=== PATIENT | male | born 1995 | race Caucasian/White ===

== ENCOUNTER 2018-02-10 17:47 | Emergency (ER) | payer SELFPAY ==
--- NOTE | 2018-02-10 18:02 | PDOC ---
History of Present Illness - General Chief Complaint: Laceration Stated Complaint: CUT LEFT INDEX FINGER WITH KNIFE Time Seen by Provider: 02/10/18 17:49 History Source: Patient Exam Limitations: No Limitations - History of Present Illness Initial Comments: This is a 22 YOM with unremarkable PMH who p/w left index finger laceration sustained about 30 minutes [employer] to the ED today. He was cooking and was attempting to cut peppers with a cooking knife when he accidentally cut the fingertip. He did not attempt to wash the incision at home. His pain level is 2/ 10 and he denies any weakness, numbness, or tingling to the finger. He denies any additional injury sustained as a result of this incident. He and his significant other are visiting from [facility] and have been staying in [place] for the past 10 days. He is UTD on his Tetanus status with last vaccination in 2010. Past History - Past Medical History Allergies/Adverse Reactions: Allergies Allergy/AdvReac Type Severity Reaction Status Date / Time No Known Allergies Allergy Unverified 02/10/18 17:49 Home Medications: Ambulatory Orders NK [No Known Home Medication] 02/10/18 Review of Systems - Review of Systems Able to Perform ROS?: Yes Constitutional: No: Chills, Fever, Unexplained wgt Loss HEENTM: No: Nose Congestion, Throat Pain Respiratory: No: Cough, Shortness of Breath Cardiac (ROS): No: Chest Pain, Palpitations ABD/GI: No: Constipated, Diarrhea, Nausea, Vomiting : No: Burning, Dysuria Musculoskeletal: No: Back Pain, Neck Pain Integumentary: Yes: Other (laceration). No: Bruising, Rash Neurological: No: Headache, Numbness, Tingling, Weakness, Dizziness Endocrine: No: Unexplained Weight Gain, Unexplained Weight Loss *Physical Exam - Physical Exam General Appearance: Yes: Nourished, Appropriately Dressed, Other (well appearing young adult male who is Nepalese speaking with [place] accent, answering questions appropriately, accompanied by significant other). No: Apparent Distress HEENT: positive: EOMI, BRI, Normal ENT Inspection, Normal Voice, Hearing Grossly Normal. negative: Scleral Icterus (R), Scleral Icterus (L), Nasal Congestion Neck: positive: Trachea midline, Supple. negative: Tender, Rigid Respiratory/Chest: positive: Lungs Clear, Normal Breath Sounds. negative: Respiratory Distress, Crackles, Rhonchi, Stridor, Wheezing Cardiovascular: positive: Regular Rhythm, Regular Rate. negative: Edema, JVD, Murmur Gastrointestinal/Abdominal: positive: Normal Bowel Sounds, Flat, Soft. negative : Tender, Organomegaly, Pulsatile Mass, Guarding Musculoskeletal: positive: Normal Inspection. negative: Decreased Range of Motion, Vertebral Tenderness Extremity: positive: Normal Capillary Refill, Normal Inspection, Normal Range of Motion. negative: Tender, Cyanosis Integumentary: positive: Normal Color, Dry, Warm, Other (radial aspect of left index fingerpad with 2.7 cm superficial linear laceration which is oozing small amount of blood, wound appears clean, no nailbed involvement, no apparent arterial injury, no tendon injury, distally and proximally neurovascularly intact). 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 negative: Numbness, Sensory Deficit, Confused, Disoriented Procedures - Laceration/Wound Repair Left Distal Finger 2nd digit Wound Length: 2.6 to 5.0 cm Wound Explored: clean, no foreign body present Wound's Depth, Shape: superficial, linear Irrigated w/ Saline: Yes Betadine Prep: No Anesthesia: 1% Lidocaine Amount of Anesthetic (ccs): 3 (digital block and local) Suture Size/Type: 5:0, nylon Number of Sutures: 4 Layer Closure: No Sterile Dressing Applied: Yes Splint Applied: No Medical Decision Making - Medical Decision Making 02/10/18 17:49 Pt p/w laceration to left index finger sustained from a knife about 30 min [employer] to the ED. No e/o tendon, ligament, or bony injury. No obvious FB or debris. Last tDaP was 2010. Initial Vital Signs Temp Pulse Resp BP Pulse Ox 98.7 F 76 16 141/78 99 02/10/18 17:49 02/10/18 17:49 02/10/18 17:49 02/10/18 17:49 02/10/18 17:49 Exam: As noted in Physical Exam section. DDX IBNLT: Simple soft tissue laceration, tendon/ligament involvement, bony involvement, larger blood vessel injury, retained FB, wound contamination with risk for infection, etc. W/U ordered: None indicated TX ordered: None indicated XR: No FB, no fracture or other bony involvement. Laceration numbed, cleaned, repaired without issue as noted in Procedures section. Hemostasis achieved, good approximation, Bacitracin applied and wound dressed. DISCHARGE The Pts laceration has been repaired without issue. They do not require abx for this laceration. Workup is not concerning for emergency-level pathology at this time. The Pt is appropriate for discharge. They are comfortable with this plan and will return to ED or go to next Friday for suture removal. Specific return precautions are discussed and they will come back to the ER if necessary. *DC/Admit/Observation/Transfer Diagnosis at time of Disposition: Finger laceration Qualifiers: Encounter type: initial encounter Finger: index finger Damage to nail status: without damage Foreign body presence: without foreign body Laterality: left Qualified Code(s): S61.211A - Laceration without foreign body of left index finger without damage to nail, initial encounter - Discharge Dispostion Disposition: HOME Condition at time of disposition: Stable Decision to Admit order: No - Referrals Referrals: ON STAFF,NOT [Non Staff, Medical] - - Patient Instructions Printed Discharge Instructions: DI for Laceration Repair Additional Instructions: You were seen in the ER for a finger laceration. We did an exam, cleaned and repaired the laceration with 4 sutures, and made sure your tetanus vaccination was up to date (you had a vaccination in 2010). After our assessment, we do not believe you are having a medical emergency at this time, and we believe you are safe to go home. Please read the information in this packet on how to care for your laceration. Keep the dressing on your wound for 24 hours and keep it clean and dry. After 24 hours, you can take the dressing off and you can shower and get the wound wet, but do not scrub the wound and do not soak it in water. Do not swim, sit in a bath of water, or sit in a jacuzzi. Please follow up with a doctor in 7-10 days to have the sutures removed (this can be your regular primary doctor, or you can return to the ER). If you have any new or worsening symptoms, especially increasing pain and redness to the area or other signs of infection like fever, please come back to the ER at any time (24 hours a day). If you are having severe or life threatening symptoms, or symptoms that make it unsafe to drive or have someone drive you, please call 911. Print Language: SPANISH - Post Discharge Activity
[2018-02-10 18:05] VITALS: BP 141/78; PULSE 76; TEMP 98.7; BMI 25.4
[2018-02-10] MEDS ORDERED: DIPHTH,PERTUSS(ACELL),TET 0.5 ML DISP.SYRIN IM ONE (18:23)
--- NOTE | 2018-02-10 18:37 | PDOC ---
Attending Attestation - Resident Resident Name: Danni Suarez - ED Attending Attestation I have performed the following: I have examined & evaluated the patient, The case was reviewed & discussed with the resident, I agree w/resident's findings & plan, Exceptions are as noted - HPI HPI: 02/10/18 18:33 22 yo M c/ no pmh right hand dominant p/w small laceration to left index finger. Pt was cutting with clean knife when he slipped. Sustained approx 1.5 cm on volar surface of left index digit distal to DIP. No numbness, weakness. Able to flex and extend all digit. Last tetanus status updated - Physicial Exam PE: 02/10/18 18:36 GENERAL: Awake, alert, and fully oriented, in no acute distress. HEAD: No signs of trauma EYES: EOMI, sclera anicteric, conjunctiva clear ENT: Auricles normal inspection, hearing grossly normal, nares patent, NECK: Normal ROM, supple EXTREMITIES: Normal range of motion, no edema. No clubbing or cyanosis. No cords, erythema, or tenderness LUE: 2+ radial pulse. Sensation and strength intact median/radian/ulnar nerve. Able to flex and extend all digits with full strength. < 2 sec cap refill. Approx 1.5 cm volar superficial laceration distal to DIP. No visible tendon injury. Exam performed in a bloodless field. NEUROLOGICAL: Cranial nerves II through XII grossly intact. Normal speech, normal gait SKIN: Warm, Dry, normal turgor, no rashes or lesions noted. - Medical Decision Making 02/10/18 18:37 Vital Signs Temp Pulse Resp BP Pulse Ox 98.7 F 76 16 141/78 99 02/10/18 17:49 02/10/18 17:49 02/10/18 17:49 02/10/18 17:49 02/10/18 17:49 Dr. Suarez will perform suture repair. Wound and scar precautions Sutures to be removed in 7 to 10 days.
== END 2018-02-10 18:50 | disposition home or self-care (01) ==
LOC: FER 17:47
DX: S61.211A Laceration without foreign body of left index finger without damage to nail, initial encounter (principal); W26.0XXA Contact with knife, initial encounter; Y93.G3 Activity, cooking and baking; Y92.9 Unspecified place or not applicable
CPT/HCPCS: 99281-25

== ENCOUNTER 2018-02-19 14:55 | Emergency (ER) | payer SELFPAY ==
--- NOTE | 2018-02-19 14:56 | PDOC ---
Suture Removal/Wound Check HPI - History of Present Illness Chief Complaint: Suture/Staple Removal(Here) Stated Complaint: SUTURE REMOVAL Time Seen by Provider: 02/19/18 14:56 History Source: Yes: Patient Exam Limitations: Yes: No Limitations Treated at: [facility] ED Date of Last ED visit: 02/10/18 - Previous ED Treatment Type of procedure performed on last visit: Yes: Laceration Repair - Onset of Previous Treatment Comment:: 22 yo M no significant PMH presents for suture removal. He cut his left index finger with a knife on 02/10, presented to the ED and was repaired here. No complaints since that time. No drainage from the wound, no pain. Past History - Past Medical History Allergies/Adverse Reactions: Allergies Allergy/AdvReac Type Severity Reaction Status Date / Time No Known Allergies Allergy Unverified 02/10/18 17:49 Home Medications: Ambulatory Orders NK [No Known Home Medication] 02/10/18 COPD: No - Suicide/Smoking/Psychosocial Hx Smoking History: Never smoked Have you smoked in the past 12 months: No Hx Alcohol Use: No Drug/Substance Use Hx: No Substance Use Type: None *Review of Systems - Review of Systems Able to Perform ROS?: Yes Comments:: GENERAL/CONSTITUTIONAL: No fever or chills. No weakness. HEAD, EYES, EARS, NOSE AND THROAT: No change in vision. No ear pain or discharge. No sore throat. CARDIOVASCULAR: No chest pain or shortness of breath. RESPIRATORY: No cough, wheezing, or hemoptysis. GASTROINTESTINAL: No nausea, vomiting, diarrhea or constipation. GENITOURINARY: No dysuria, frequency, or change in urination. MUSCULOSKELETAL: No joint or muscle swelling or pain. No neck or back pain. SKIN: No rash NEUROLOGIC: No headache, vertigo, loss of consciousness, or change in strength/ sensation. ENDOCRINE: No increased thirst. No abnormal weight change. HEMATOLOGIC/LYMPHATIC: No anemia, easy bleeding, or history of blood clots. ALLERGIC/IMMUNOLOGIC: No hives or skin allergy. *Physical Exam - Physical Exam Comments: GENERAL: Awake, alert, and fully oriented, in no acute distress HEAD: No signs of trauma EYES: PERRLA, EOMI, sclera anicteric, conjunctiva clear EXTREMITIES: Healing laceration to L index finger. No erythema, no drainage. 4 sutures present. Normal range of motion, no edema. No clubbing or cyanosis. No cords, erythema, or tenderness NEUROLOGICAL: Cranial nerves II through XII grossly intact. Normal speech, normal gait SKIN: Warm, Dry, normal turgor, no rashes or lesions noted. Medical Decision Making - Medical Decision Making 02/19/18 15:08 Four sutures removed without incident. Steri-strips placed. Stable for DC home. *DC/Admit/Observation/Transfer Diagnosis at time of Disposition: Visit for suture removal - Discharge Dispostion Disposition: HOME Condition at time of disposition: Stable Decision to Admit order: No - Referrals - Patient Instructions Printed Discharge Instructions: DI for Suture Removal - Post Discharge Activity
[2018-02-19 15:05] VITALS: BP 121/80; PULSE 65; TEMP 98.8; BMI 25.4
== END 2018-02-19 15:14 | disposition home or self-care (01) ==
LOC: FER 14:55
DX: Z48.02 Encounter for removal of sutures (principal)
CPT/HCPCS: 99281-25